=== PATIENT | female | born 1995 | race Caucasian/White ===

== ENCOUNTER 2020-05-10 18:54 | Inpatient (IN) | payer MEDICAID ==
[~2020-05-10] VITALS: Ht 160 cm; Wt 62.6 kg
[2020-05-10] MEDS ORDERED: PREN-182 PO (19:43)
[2020-05-10] MEDS ORDERED: FERR325T6 PO (19:43)
[2020-05-10] MEDS ORDERED: NALOXONE HCL 0.4 MG/ML 1ML VIAL IM PRN (20:00)
[2020-05-10] MEDS ORDERED: RHO(D) IMMUNE GLOBULIN 300 MCG/SYR IM ONE (20:00)
[2020-05-10] MEDS ORDERED: LIDOCAINE HCL 1% 20ML VIAL (Pyxis) INJ INFIL SCH (20:00)
[2020-05-10 20:25] LABS: BASOPHILS % 0.4 % (0.0-2.0); EOSINOPHILS % 0.6 % (0.0-5.0); HEMATOCRIT. 38.6 % (36.0-48.0); HEMOGLOBIN. 13.5 g/dL (12.0-16.0); LYMPHOCYTES % 13.5 % (20.0-50.0); MEAN CORPUSCULAR HEMOGLOBIN 33.7 pg (28.0-32.0); MEAN CORPUSCULAR VOLUME 96.2 fL (81.0-99.0); MEAN PLATELET VOLUME 11.3 fl (7.4-10.4); MONOCYTES % 7.3 % (2.0-8.0); NEUTROPHILS % 78.2 % (40.0-76.0); PLATELET 165 x1000/uL (130-400); RED BLOOD CELL COUNT 4.01 mill/uL (4.2-5.4); RED CELL DISTRIBUTION WIDTH 14.7 % (11.6-14.6)
[2020-05-10 20:37] LABS: INR 0.9; PARTIAL THROMBOPLASTIN TIME 28.2 sec (23.4-31.0)
[2020-05-10] MEDS: LACTATED RINGERS 1,000 ML IV SCH ×2 (20:37→21:21)
[2020-05-10 20:38] LABS: CLARITY URINE CLEAR (CLEAR); COLOR URINE YELLOW (YELLOW); KETONES URINE NEGATIVE (NEGATIVE); LEUKOCYTE ESTERASE URINE 2+ (NEGATIVE); NITRITE URINE NEGATIVE (NEGATIVE); OCCULT BLOOD URINE NEGATIVE (NEGATIVE); PH URINE 7.5 (4.5-8.0); PROTEIN URINE NEGATIVE (NEGATIVE); SPECIFIC GRAVITY URINE 1.006 (1.005-1.030); UROBILINOGEN URINE 0.2 E.U./dL (0.2-1.0)
[2020-05-10] MEDS: CLINDAMYCIN 600MG PREMIX 50 ML IV SCH (21:20)
[2020-05-10] MEDS ORDERED: ROPIVACAINE HCL/PF EPIDURAL 200 ML EPI SCH (21:30)
[2020-05-10 21:53] LABS: HEPATITIS B SURFACE ANTIGEN NEGATIVE
[2020-05-10 22:06] LABS: *AMPHETAMINES SCREEN URINE NEGATIVE (NEGATIVE); *BARBITURATES SCREEN URINE NEGATIVE (NEGATIVE)
[2020-05-10 22:07] LABS: *BENZODIAZEPINES SCREEN URINE NEGATIVE (NEGATIVE); *COCAINE SCREEN URINE NEGATIVE (NEGATIVE); METHADONE URINE SCREEN NEGATIVE (NEGATIVE); OPIATES URINE SCREEN NEGATIVE (NEGATIVE); PHENCYCLIDINE URINE SCREEN NEGATIVE (NEGATIVE)
[2020-05-10 22:08] LABS: CANNABINOID URINE SCREEN NEGATIVE (NEGATIVE)
[2020-05-11] MEDS ORDERED: DEXT 5%/LR + PITOCIN 20UNITS/L 1,000 ML IV SCH ×2 (01:00→20:00)
[2020-05-11] MEDS: BUTORPHANOL TARTRATE 2 MG/ML VIAL IV PRN ×2 (04:40→13:01)
[2020-05-11] MEDS: LACTATED RINGERS 1,000 ML IV SCH ×2 (04:42→17:22)
[2020-05-11] MEDS: CLINDAMYCIN 600MG PREMIX 50 ML IV SCH ×2 (05:14→12:56)
[2020-05-11] MEDS ORDERED: GLYCERIN/WITCH HAZEL LEAF MEDICATED PAD TOP PRN (20:00)
[2020-05-11] MEDS ORDERED: IBUPROFEN 400MG TABLET PO PRN (20:00)
[2020-05-11] MEDS ORDERED: HEMORRHOIDAL SUPP PR PRN (20:00)
[2020-05-11] MEDS ORDERED: ACETAMINOPHEN WITH CODEINE 300/30MG TABLET PO PRN (20:00)
[2020-05-11] MEDS ORDERED: LANOLIN OINT 7GM TUBE TOP PRN (20:00)
[2020-05-11] MEDS ORDERED: BENZOCAINE/LANOLIN/ALOE VERA SPRAY TOP PRN (20:00)
[2020-05-11] MEDS ORDERED: DIPHENHYDRAMINE 25MG CAPSULE PO PRN (20:00)
[2020-05-11] MEDS ORDERED: BISACODYL 10MG SUPP PR PRN (20:00)
[2020-05-11] MEDS ORDERED: DOCUSATE SODIUM 100MG CAPSULE PO SCH (21:00)
[2020-05-11 21:50] VITALS: BP 105/64
[2020-05-12 04:00] VITALS: BP 108/61
[2020-05-12] MEDS: IBUPROFEN 800MG TABLET PO PRN ×2 (04:02→21:26)
[2020-05-12 07:57] LABS: BASOPHILS % 0.4 % (0.0-2.0); HEMOGLOBIN. 13.1 g/dL (12.0-16.0); LYMPHOCYTES % 9.2 % (20.0-50.0); MEAN CORPUSCULAR HEMOGLOBIN 32.8 pg (28.0-32.0); MEAN CORPUSCULAR VOLUME 97.8 fL (81.0-99.0); MEAN PLATELET VOLUME 11.1 fl (7.4-10.4); MONOCYTES % 7.1 % (2.0-8.0); NEUTROPHILS % 83.3 % (40.0-76.0); PLATELET 172 x1000/uL (130-400); RED BLOOD CELL COUNT 3.99 mill/uL (4.2-5.4); RED CELL DISTRIBUTION WIDTH 14.6 % (11.6-14.6)
[2020-05-12 08:00] VITALS: BP 102/66
[2020-05-12] MEDS: FERROUS SULFATE 325MG TABLET PO SCH (10:05)
[2020-05-12] MEDS: PRENATAL VIT/FE FUMARATE/FA TABLET PO SCH (10:05)
[2020-05-12] MEDS: MAGNESIUM/ALUMINUM HYDROXIDE/SIMETHICONE 30ML UDC PO SCH ×2 (10:05→21:21)
[2020-05-12] MEDS: SIMETHICONE 80MG TABLET CHEW PO SCH ×2 (10:06→21:21)
[2020-05-12 17:14] VITALS: BP 99/68
[2020-05-12 19:30] VITALS: BP 106/62
[2020-05-13 04:40] VITALS: BP 99/64
[2020-05-13 07:25] LABS: BASOPHILS % 0.5 % (0.0-2.0); EOSINOPHILS % 1.4 % (0.0-5.0); HEMATOCRIT. 37.2 % (36.0-48.0); HEMOGLOBIN. 12.5 g/dL (12.0-16.0); LYMPHOCYTES % 21.1 % (20.0-50.0); MEAN CORPUSCULAR HEMOGLOBIN 33.1 pg (28.0-32.0); MEAN CORPUSCULAR VOLUME 98.4 fL (81.0-99.0); MEAN PLATELET VOLUME 10.9 fl (7.4-10.4); MONOCYTES % 6.9 % (2.0-8.0); NEUTROPHILS % 70.1 % (40.0-76.0); PLATELET 168 x1000/uL (130-400); RED BLOOD CELL COUNT 3.78 mill/uL (4.2-5.4); RED CELL DISTRIBUTION WIDTH 14.6 % (11.6-14.6)
[2020-05-13 08:00] VITALS: BP 112/67
[2020-05-13] MEDS: FERROUS SULFATE 325MG TABLET PO SCH (13:51)
[2020-05-13] MEDS: MAGNESIUM/ALUMINUM HYDROXIDE/SIMETHICONE 30ML UDC PO SCH (13:51)
[2020-05-13] MEDS: SIMETHICONE 80MG TABLET CHEW PO SCH (13:52)
[2020-05-13] MEDS: PRENATAL VIT/FE FUMARATE/FA TABLET PO SCH (13:52)
[2020-05-13 16:27] VITALS: BP 100/64
== END 2020-05-13 19:00 | disposition home or self-care (01) | DRG 560 ==
LOC: 8 EST LDRP 18:54 → OBSVTOIN 18:54 → 8EST 05-11 22:05
PROVIDERS: ADMIT Obstetrics & Gynecology; ATTEND Obstetrics & Gynecology
PROC: 10E0XZZ Delivery of Products of Conception, External Approach (ICD-10-PCS; principal; 2020-05-11)
PROC: 0KQM0ZZ Repair Perineum Muscle, Open Approach (ICD-10-PCS; 2020-05-11)
DX: O60.14X0 Preterm labor third trimester with preterm delivery third trimester, not applicable or unspecified (principal); O70.1 Second degree perineal laceration during delivery; Z37.0 Single live birth; Z3A.35 35 weeks gestation of pregnancy; Z88.0 Allergy status to penicillin; Z20.822 Contact with and (suspected) exposure to COVID-19
CPT/HCPCS: 36415; 76805; 76818; 80305; 81003; 85025; 86592; 86703; 86762; 86850; 86900; 87340; 87426; 99281; G0378; J0595; J2590; J3490